=== PATIENT | male | born 1980 | race Caucasian/White ===

== ENCOUNTER 2017-04-22 07:00 | Day surgery (SDC) | payer OTHER ==
[2017-04-19 10:49] VITALS: BMI 31.2
[~2017-04-22] VITALS: Ht 154.9 cm; Wt 78.7 kg
[2017-04-22] VITALS (10 sets, daily range): BP systolic 111–140; BP diastolic 63–82; PULSE 66–78; RESP 13–18; Ht 154.9 cm; Wt 78.7 kg
[~2017-04-22 07:00] MED LIST: CEFAZOLIN 2 GM/50 ML (PMX) 50 ML IVPB ONE; SOD CHLORIDE 0.9% 1,000 ML IV ONE
[2017-04-22] MEDS ORDERED: ATOR20TA38 PO (07:23)
[2017-04-22] MEDS ORDERED: OMEP20CA16 PO (07:23)
[2017-04-22] MEDS ORDERED: BUPIVACAINE 0.25% (MPF) 30 ML INJ ONE (10:39)
[2017-04-22] MEDS ORDERED: FENTAnyl 50 MCG/ML VIAL ONE (10:48)
[2017-04-22] MEDS ORDERED: MIDAZOLAM 1 MG/ML 2 ML INJ ONE (10:48)
[2017-04-22] MEDS ORDERED: BUPIVACAINE 0.25% (MPF) 30 ML INJ INJ ONE (11:10)
--- NOTE | 2017-04-22 11:18 | OPR ---
Date/Time of Note Date/Time of Note DATE: 04/22/17 TIME: 11:16 Operative Report Procedure Date: Apr 22, 2017 Preoperative Diagnosis left thigh mass Postoperative Diagnosis same Operation/Procedure Performed 1. excision of left thigh mass 4 cm mass 4 cm incision 2. localized adjacent tissue transfer with the use of skin flaps 8 sq cm defect 3. therapeutic injection of subcutaneous local anesthesia Surgeon see signature line Dental Mold Maker none Anesthesia Type: general Estimated Blood Loss: minimal Transfusion none Specimen left thigh mass Grafts/Implants none Complications none Pt Condition Post Procedure: stable Indications This is a 36-year-old male with a left thigh mass. He requests surgical excision. Risks alternatives benefits and percent were discussed the patient. Patient expresses understanding consents to the operation. Procedure Description Patient is taken to the OR and prepped and draped in usual sterile fashion. Surgical timeout was performed. IV antibiotics given. Elliptical incision was made over the left thigh mass in the posterior area with a 15 blade. Dissection cautery was carried onto the mass and circumferentially excised. Due to tissue defect localized adjacent tissue transfer with these of skin flaps were performed. Multilayer closure with interrupted 3-0 Vicryl and skin juan carlos. Therapeutic subcutaneous local anesthesia was injected throughout the incision. Dressings were applied. Ean MATA Apr 22, 2017 11:18
[2017-04-22] MEDS ORDERED: PROPOFOL 20 ML ONE (11:22)
[2017-04-22] MEDS ORDERED: LIDOCAINE 2% (SDV) 5 ML INJ ONE (11:22)
[2017-04-22] MEDS ORDERED: CEFAZOLIN 1 GM INJ ONE (11:22)
[2017-04-22] MEDS ORDERED: ONDANSETRON 4 MG INJ ONE (11:23)
[2017-04-22] MEDS ORDERED: HYDROCODONE/APAP (5/325) TAB PO ONE (11:30)
== END 2017-04-22 12:58 | disposition home or self-care (01) ==
LOC: SDS 07:00
PROVIDERS: ATTEND Surgery
DX: L72.0 Epidermal cyst (principal); E78.5 Hyperlipidemia, unspecified; K21.9 Gastro-esophageal reflux disease without esophagitis; E66.01 Morbid (severe) obesity due to excess calories
CPT/HCPCS: 14020; 88307; J0690; J2250; J2405; J3010